=== PATIENT | male | born 1945 | race Caucasian/White ===

== ENCOUNTER → 2017-03-07 | Outpatient (CLI) | payer MEDICARE, OTHER ==
[~2017-03-07] MED LIST: ARICEPT10 MG PO; ASPIRIN (CHILDR81 MG PO; ATIVAN 1 MG1 MG PO; BROVANA15 MCG/2 M INH; CLEOCIN150 MG PO; COZAAR50 MG PO; DELTASONE10 MG PO; DELTASONE20 MG PO; DEPO TESTOS200 MG/ML IM; FLOMAX0.4 MG PO; FLORASTOR250 MG PO; HYDROCORT 1% CR30 GM TOP; HYGROTON25 MG PO; I-VITE TABLET1 EACH PO; LIPITOR10 MG PO; MYSOLINE50 MG PO; NORVASC2.5 MG PO; OCEAN NASAL) (A44 ML NOSE; PAXIL20 MG PO; PRILOSEC20 MG PO; PROVENTIL OR V6.7 GM INH; PROZAC20 MG PO; PULMICORT0.5 MG/21 INH; REFRESH OPTIVE10 ML OPHTH; SINGULAIR10 MG PO; TESSALON PERLE100 MG PO; TYLENOL ARTHRI650 MG PO; ULTRAM50 MG PO; VITAMIN D-32000 UNI1 PO; ZITHROMAX TRI-500 MG PO
== END | disposition disaster alternative care site (69) ==
LOC: GRAD 09:35
DX: R91.1 Solitary pulmonary nodule (principal)